=== PATIENT | male | born 1980 | race Caucasian/White ===

== ENCOUNTER 2017-09-07 01:18 | Emergency (ER) | payer OTHER, SELFPAY ==
[2017-09-07 01:19] VITALS: BP 139/88; PULSE 80; RESP 17; TEMP 37; O2SAT 100; BMI 27.0
--- NOTE | 2017-09-07 01:38 | EKG12_ITS ---
Test Reason : CHEST PAIN Blood Pressure : / mmHG Vent. Rate : 079 BPM Atrial Rate : 079 BPM P-R Int : 136 ms QRS Dur : 080 ms QT Int : 384 ms P-R-T Axes : 009 041 031 degrees QTc Int : 440 ms Normal sinus rhythm Normal ECG Confirmed by SÁNCHEZ MCDONNELL MD ([id number]), desk editor SOL BRYAN ([id number] on 09/08/2017 8:34:36 AM Referred By: TL Confirmed By:SÁNCHEZ MCDONNELL MD
--- NOTE | 2017-09-07 01:38 | RAD_ITS ---
STUDY: X-RAY CHEST REASON FOR EXAM: Male, 36 years old. DIZZINESS AND CHEST PAIN SINCE. TECHNIQUE: Single AP portable view of the chest. COMPARISON: None. FINDINGS: The lungs are clear and expanded. There is no demonstrated pleural abnormality. Normal size heart. Normal mediastinum and michael. Normal visualized pulmonary arteries. Normal visualized aortic arch and descending thoracic aorta. Normal visualized thoracic spine. Normal visualized ribs, clavicles, and shoulders. There is no demonstrated abnormality of the visualized soft tissue structures of the upper abdomen. RAD/Chest 1 View (Portable) IMPRESSION: Normal x-ray examination of the chest. Electronically Signed: Darin Frias MD at 2:32 EDT Tel , Service support ,
--- NOTE | 2017-09-07 01:40 | ED.DCSUM_ITS ---
- ER Visit Summary Date of Service: 09/07/17 Chief Complaint: Chest pain History of Present Illness: The patient is a 36 M left-sided chest pain since yesterday around 4 PM after having an anxiety attack. History of PTSD. His pain down left arm and up to the neck. Complains of dyspnea. Complains of exertional dyspnea. No cough. No nausea. No diaphoresis. No history of AR. Stress test in 2009 after anxiety attack. He vapors. Also states he drove to [place] 2 weeks ago. There is no leg swelling or cramping. No history of PE or DVT. Pain is currently a 5. No history of hypertension, diabetes, hypercholesterolemia. No family history of AR at a young age. Physical Examination: General: Alert and oriented ?3, no acute distress HEENT: Normocephalic, atraumatic. Moist mucosa membranes Neck: supple, nontender. Cardiovascular: Regular rate and rhythm, no murmurs Respiratory: Normal breath sounds, symmetric, no distress Abdomen: Soft, nontender, nondistended Extremities: Nontender, no edema, pulses intact ?4 Neuro: no focal neurological deficits. Test Results: EKG: Sinus rate of 79, no ST or T-wave changes. Troponin negative. D-dimer negative. Chest x-ray no acute process. Emergency Department Course and Treatment: Patient EKG normal. Cardiac workup negative. D-dimer due to low risk Wells criteria from recent travel obtain was also negative. Patient persistent symptoms over 24 hours, negative troponin, less likely cardiac in nature. He was given aspirin. Heart scores a 2. Heart pathway guideline discussed with the patient. He understands the risks. He will follow-up as an outpatient for further testing. He will return if any worsening symptoms. All questions were answered. Treatment Plan: [] Disposition: Discharge Impression: Atypical chest pain This note was generated with [employer] dictation software. It may contain incorrect words, spelling, and punctuation that were not noted in review of the chart prior to signing ED Disposition - Plan for ED Patient: Disposition: Home or Assisted Living Chief Complaint: Chest Pain Diagnosis: Atypical chest pain Instructions: ED Chest Pain Atypical Unkn Cause [facility] - 3-5 Days
--- NOTE | 2017-09-07 01:41 | NURSING ---
NO OLD EKG TO OBTAIN
[2017-09-07 01:45] LABS: Absolute Lymphocyte Count 2.75 X10^3/ul (0.83-4.51); Absolute Neutrophil Count 7.1 X10^3/uL (2.0-7.7); Basophil# 0.08 X10^3/uL; Basophil% 0.7 % (0-1); Eosinophil# 0.24 X10^3/uL; Eosinophils% 2.2 % (0-5); Hematocrit 42.9 % (40-54); Hemoglobin 14.3 g/dl (13.0-16.5); Lymphocyte # 2.75 X10^3/ul (4.0); Lymphocyte % 25.1 % (19-41); Mean Corp Hgb Conc 33.3 g/gl (32-36); Mean Corpuscular Hgb 28.5 pg (27.0-32.0); Mean Corpuscular Volume 85.6 fL (80-94); Monocyte# 0.73 X10^3/uL; Monocyte% 6.7 % (0-10); Neutrophil # 7.13 X10^3/uL (2.7-7.7); Neutrophil % 65.2 % (47-70); Platelet Count 278 K/mm3 (150-450); RBC Distribution Width CV 13.5 % (11.6-14.6); RBC Distribution Width SD 42.3 fl (35.1-43.9); Red Blood Count 5.01 M/mm3 (4.6-6.2); White Blood Count 10.9 K/mm3 (4.4-11.0)
[2017-09-07 01:46] LABS: POSITIVE COUNT NO; POSITIVE DIFFERENTIAL NO; POSITIVE MORPHOLOGY NO
[2017-09-07 02:00] LABS: D-Dimer Quantitative (DVT/PE) < 0.27 FEU/ug/m (0.27-0.49)
[2017-09-07 02:02] LABS: Anion Gap 7 (5-15); BUN 14 mg/dL (7-18); BUN/Creat Ratio 14.2 RATIO (10-20); Calcium,Total 8.7 mg/dL (8.5-10.1); Chloride 106 mmol/L (98-107); Creatinine, Serum 0.99 mg/dL (0.70-1.30); EST Glomerular Filtration Rate 90 mL/min (>60); Est Glom Filt Rate - Afr Amer 109 mL/min (>60); Estimated Creatinine Clearance 101.17 ml/min; Glucose 94 mg/dL (74-106); Potassium 3.6 mmol/L (3.5-5.1); Sodium Level 140 mmol/L (136-145)
[2017-09-07] MEDS: Aspirin 81 MG TAB.CHEW 324 MG PO (02:12)
[2017-09-07 03:20] VITALS: BP 118/79; PULSE 74; RESP 22; O2SAT 98
[2017-09-07 03:59] VITALS: BP 114/78; PULSE 63; RESP 18; O2SAT 100
== END 2017-09-07 03:59 | disposition home or self-care (01) ==
PROVIDERS: Emergency Provider Emergency Medicine
DX: R07.89 Other chest pain (principal); R06.09 Other forms of dyspnea; F41.9 Anxiety disorder, unspecified; F43.10 Post-traumatic stress disorder, unspecified
CPT/HCPCS: 71045; 80048; 84484; 85025; 85379; 93005; 99285

== ENCOUNTER 2017-09-17 14:46 | Emergency (ER) | payer OTHER, SELFPAY ==
[2017-09-17 14:46] VITALS: BP 104/71; PULSE 95; RESP 18; TEMP 37; O2SAT 99; BMI 26.6
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
[2017-09-17] MEDS: Ketorolac 30 MG/ML Syringe IM (15:10)
[2017-09-17] MEDS: Orphenadrine 60 MG/2 ML Ampul IM (15:10)
[2017-09-17] MEDS: HYDROcodone Bitartrate/Apap 5/325 Tablet PO (15:57)
== END 2017-09-17 16:43 | disposition home or self-care (01) ==
PROVIDERS: Emergency Provider Emergency Medicine
DX: S39.012A Strain of muscle, fascia and tendon of lower back, initial encounter (principal); X50.1XXA Overexertion from prolonged static or awkward postures, initial encounter; Y93.89 Activity, other specified; Y92.814 Boat as the place of occurrence of the external cause; Y99.8 Other external cause status
CPT/HCPCS: 96372; 99282

== ENCOUNTER → 2018-11-19 | Outpatient (CLI) | payer OTHER, SELFPAY ==
[2018-11-19 13:44] LABS: Bacteria 0 SEEN /hpf (None Seen); Mucous, Urine 0 SEEN /hpf (<or=2+); Red Blood Cells-Urine 0 SEEN /hpf (0-5); Squamous Epithelial Cells - UA 0 SEEN /hpf (0-5); White Blood Cells 0 SEEN /hpf (0-5)
[2018-11-19 15:24] LABS: Absolute Lymphocyte Count 1.71 X10^3/uL (0.83-4.51); Absolute Neutrophil Count 5.7 X10^3/uL (2.0-7.7); Basophil# 0.08 X10^3/uL; Color, Urine Yellow (Yellow); Eosinophil# 0.17 X10^3/uL; Eosinophils% 2.1 % (0-5); Glucose, Dipstick Normal (Normal); Hematocrit 42.9 % (40-54); Hemoglobin 13.6 g/dL (13.0-16.5); Ketone-Dipstick Negative (Negative); Leukocyte Esterase-Dipstick Negative /ul (Negative); Lymphocyte # 1.71 X10^3/ul (4.0); Lymphocyte % 20.7 % (19-41); Mean Corp Hgb Conc 31.7 g/dL (32-36); Mean Corpuscular Hgb 28.2 pg (27.0-32.0); Mean Platelet Vol. 11.7 fl (6.2-12.0); Monocyte# 0.62 X10^3/uL; Monocyte% 7.5 % (0-10); NRBC Flagged by Analyzer 0 % (0-5); Neutrophil # 5.66 X10^3/uL (2.7-7.7); Neutrophil % 68.3 % (47-70); Nitrite-Dipstick Negative (Negative); Occult Blood-Urine Negative /ul (Negative); Platelet Count 271 K/mm3 (150-450); Protein-Dipstick Negative (Negative); RBC Distribution Width CV 13.1 % (11.6-14.6); RBC Distribution Width SD 42.5 fl (35.1-43.9); Red Blood Count 4.82 M/mm3 (4.6-6.2); Specific Gravity, Urine 1.015 (1.002-1.030); Urine Bilirubin Dipstick Negative (Negative); Urine Clarity Clear (Clear); Urine Urobilinogen Normal (Normal); White Blood Count 8.3 K/mm3 (4.4-11.0)
[2018-11-19 15:34] LABS: Hemoglobin A1c 5.1 % (4.2-6.3)
[2018-11-19 15:47] LABS: ALB/GLOB Ratio 0.9 RATIO (0.9-2.4); AST(SGOT) 17 U/L (15-37); Alanine Aminotransfer ALT/SGPT 26 U/L (16-61); Albumin, Serum 3.4 g/dL (3.2-5.0); Alkaline Phosphatase 71 U/L (45-117); Anion Gap 9 (5-15); BUN 13 mg/dL (7-18); Calcium,Total 8.4 mg/dL (8.5-10.1); Chloride 109 mmol/L (98-107); Cholesterol 232 mg/dL (200); Creatinine, Serum 1.08 mg/dL (0.70-1.30); EST Glomerular Filtration Rate 80 mL/min (>60); Est Glom Filt Rate - Afr Amer 97 mL/min (>60); Globulin 3.6 g/dL (2.2-4.2); Glucose 67 mg/dL (74-106); High Density Lipoprotein 49 mg/dL; Potassium 3.9 mmol/L (3.5-5.1); Sodium Level 144 mmol/L (136-145); Triglycerides 83 mg/dL; Very Low Density Lipoprotein 17 mg/dL (5-40)
== END | disposition home or self-care (01) ==
LOC: MFPLAB 13:42
PROVIDERS: Family Provider Family Medicine; PCP Family Medicine; Referring Provider Family Medicine; Visit Provider Family Medicine
DX: R63.1 Polydipsia (principal); F41.9 Anxiety disorder, unspecified; N52.9 Male erectile dysfunction, unspecified
CPT/HCPCS: 36415; 80053; 80061; 81001; 83036; 84443; 85025

== ENCOUNTER → 2019-02-26 14:35 | Outpatient (CLI) | payer OTHER, SELFPAY ==
--- NOTE | 2019-02-26 14:40 | RAD_ITS ---
STUDY: X-RAY - ACUTE ABDOMINAL SERIES REASON FOR EXAM: Male, 38 years old. Abdominal pain. TECHNIQUE: Single view of the chest. Supine, upright view(s) of the abdomen were obtained. COMPARISON: Chest x-ray September 07, 2017. CT abdomen and pelvis December 10, 2014. FINDINGS: The lungs are clear and expanded. Normal size heart. Normal mediastinum and michael. Normal visualized pulmonary arteries. Normal visualized aortic arch and descending thoracic aorta. There is a non-specific bowel gas pattern. The soft tissue structures of the abdomen and pelvis are unremarkable. Stable 1 cm sclerotic density left ischial tuberosity probably representing an incidental bone island. RAD/Acute Abdomen Inc Chest IMPRESSION: No acute cardiopulmonary disease. Nonspecific bowel gas pattern without evidence of obstruction. Electronically Signed: Stephen Nayak MD at 5:37 EST , Service support ,
== END ==
PROVIDERS: Family Provider Family Medicine; PCP Family Medicine; Referring Provider Family Medicine; Visit Provider Family Medicine
DX: R10.9 Unspecified abdominal pain (principal)
CPT/HCPCS: 74022

== ENCOUNTER → 2019-10-30 08:24 | Outpatient (CLI) | payer OTHER, SELFPAY ==
--- NOTE | 2019-10-30 08:53 | RAD_ITS ---
STUDY: X-RAY CHEST REASON FOR EXAM: Male, 39 years old. dysphagia TECHNIQUE: PA and lateral COMPARISON: 09/07/2017 FINDINGS: The lungs are clear and expanded. There is no demonstrated pleural abnormality. Normal size heart. Normal mediastinum and michael. Normal visualized pulmonary arteries. Normal visualized aortic arch and descending thoracic aorta. Dorsal spine demonstrates mild spondylosis. Normal visualized ribs, clavicles, and shoulders. There is no demonstrated abnormality of the visualized soft tissue structures of the upper abdomen. No significant change since prior exam RAD/Chest PA and Lateral IMPRESSION: No acute cardiopulmonary pathology Electronically Signed: Everette Holley MD at 22:50 EDT , Service support ,
[2019-10-30 10:15] LABS: Absolute Lymphocyte Count 1.74 X10^3/uL (0.83-4.51); Absolute Neutrophil Count 6.1 X10^3/uL (2.0-7.7); Basophil# 0.08 X10^3/uL; Basophil% 0.9 % (0-1); Eosinophil# 0.18 X10^3/uL; Hematocrit 43.6 % (40-54); Hemoglobin 13.7 g/dL (13.0-16.5); Lymphocyte # 1.74 X10^3/ul (4.0); Lymphocyte % 19.7 % (19-41); Mean Corp Hgb Conc 31.4 g/dL (32-36); Mean Corpuscular Volume 89.2 fL (80-94); Mean Platelet Vol. 11.5 fl (6.2-12.0); Monocyte# 0.76 X10^3/uL; Monocyte% 8.6 % (0-10); NRBC Flagged by Analyzer 0 % (0-5); Neutrophil # 6.05 X10^3/uL (2.7-7.7); Neutrophil % 68.6 % (47-70); Platelet Count 287 K/mm3 (150-450); RBC Distribution Width CV 13.3 % (11.6-14.6); RBC Distribution Width SD 43.2 fl (35.1-43.9); Red Blood Count 4.89 M/mm3 (4.6-6.2); White Blood Count 8.8 K/mm3 (4.4-11.0)
[2019-10-30 10:42] LABS: ALB/GLOB Ratio 0.9 RATIO (0.9-2.4); AST(SGOT) 17 U/L (15-37); Alanine Aminotransfer ALT/SGPT 30 U/L (16-61); Albumin, Serum 3.5 g/dL (3.2-5.0); Alkaline Phosphatase 72 U/L (45-117); Anion Gap 3 (5-15); BUN 15 mg/dL (7-18); BUN/Creat Ratio 14.7 RATIO (10-20); Calcium,Total 8.6 mg/dL (8.5-10.1); Chloride 106 mmol/L (98-107); Creatinine, Serum 1.02 mg/dL (0.70-1.30); EST Glomerular Filtration Rate 86 mL/min (>60); Est Glom Filt Rate - Afr Amer 103 mL/min (>60); Globulin 3.7 g/dL (2.2-4.2); Glucose 86 mg/dL (74-106); Potassium 4.1 mmol/L (3.5-5.1); Protein, Total 7.2 g/dL (6.4-8.2); Sodium Level 140 mmol/L (136-145)
[2019-10-31 16:08] LABS: Endomysial Antibody IgA Negative (Negative)
[2019-10-31 20:44] LABS: Immunoglobulin A 146 mg/dL (90-386); t-Transglutaminase IgA <2 U/mL (0-3)
[2019-10-31 20:50] LABS: ANTINUCLEAR ANTIBODIES DIRECT Positive (Negative)
[2019-11-04 16:08] LABS: Anti-Centromere B Ab <0.2 AI (0.0-0.9); Anti-Chromatin <0.2 AI (0.0-0.9); Anti-Jo <0.2 AI (0.0-0.9); Anti-Scleroderma-70 AB <0.2 AI (0.0-0.9); RNP Ab 2.7 AI (0.0-0.9); SJOGREN'S Anti-SS-A test < 0.2 AI (0.0-0.9); SJOGREN'S Anti-SS-B test < 0.2 AI (0.0-0.9); Smith Ab <0.2 AI (0.0-0.9)
[2019-11-04 21:27] LABS: Anti-dsDNA Ab 7 IU/mL (0-9)
== END ==
LOC: MTLAB 08:26
PROVIDERS: PCP Family Medicine; Referring Provider Family Medicine; Visit Provider Family Medicine
DX: R19.7 Diarrhea, unspecified (principal); R53.81 Other malaise; R13.10 Dysphagia, unspecified
CPT/HCPCS: 36415; 71046; 80053; 82784; 83516; 85025; 86038; 86225; 86235; 86255

== ENCOUNTER → 2020-06-24 09:49 | Outpatient (CLI) | payer OTHER, SELFPAY ==
[2020-06-24 12:50] LABS: Absolute Lymphocyte Count 1.58 X10^3/uL (0.83-4.51); Basophil# 0.07 X10^3/uL; Basophil% 0.7 % (0-1); Eosinophil# 0.15 X10^3/uL; Eosinophils% 1.6 % (0-5); Hematocrit 45.1 % (40-54); Hemoglobin 14.1 g/dL (13.0-16.5); Lymphocyte # 1.58 X10^3/ul (0.83-4.51); Lymphocyte % 16.6 % (19-41); Mean Corp Hgb Conc 31.3 g/dL (32-36); Mean Corpuscular Hgb 27.4 pg (27.0-32.0); Mean Corpuscular Volume 87.6 fL (80-94); Mean Platelet Vol. 11.6 fl (6.2-12.0); Monocyte# 0.73 X10^3/uL; Monocyte% 7.7 % (0-10); NRBC Flagged by Analyzer 0 % (0-5); Neutrophil # 6.95 X10^3/uL (2.7-7.7); Neutrophil % 73.1 % (47-70); Platelet Count 299 K/mm3 (150-450); RBC Distribution Width CV 13.3 % (11.6-14.6); RBC Distribution Width SD 42.9 fl (35.1-43.9); Red Blood Count 5.15 M/mm3 (4.6-6.2); White Blood Count 9.5 K/mm3 (4.4-11.0)
[2020-06-24 13:08] LABS: AST(SGOT) 21 U/L (15-37); Alanine Aminotransfer ALT/SGPT 29 U/L (16-61); Albumin, Serum 3.8 g/dL (3.2-5.0); Alkaline Phosphatase 78 U/L (45-117); Anion Gap 3 (5-15); BUN 18 mg/dL (7-18); BUN/Creat Ratio 19.2 RATIO (10-20); Calcium,Total 9.1 mg/dL (8.5-10.1); Chloride 108 mmol/L (98-107); Cholesterol 241 mg/dL (200); Creatinine, Serum 0.94 mg/dL (0.70-1.30); EST Glomerular Filtration Rate 94 mL/min (>60); Est Glom Filt Rate - Afr Amer 113 mL/min (>60); Globulin 3.8 g/dL (2.2-4.2); Glucose 93 mg/dL (74-106); High Density Lipoprotein 45 mg/dL; Protein, Total 7.6 g/dL (6.4-8.2); Sodium Level 138 mmol/L (136-145); Thyroid Stim Hormone (TSH) 1.09 uIU/mL (0.358-3.74); Triglycerides 62 mg/dL; Very Low Density Lipoprotein 12 mg/dL (5-40)
== END ==
PROVIDERS: PCP Family Medicine; Referring Provider Family Medicine; Visit Provider Family Medicine
DX: E78.5 Hyperlipidemia, unspecified (principal); F41.9 Anxiety disorder, unspecified
CPT/HCPCS: 36415; 80053; 80061; 84443; 85025

== ENCOUNTER → 2020-11-11 08:14 | Outpatient (CLI) | payer OTHER, SELFPAY ==
[2020-11-11 10:45] LABS: ALB/GLOB Ratio 1.1 RATIO (0.9-2.4); AST(SGOT) 38 U/L (15-37); Alanine Aminotransfer ALT/SGPT 50 U/L (16-61); Albumin, Serum 4.1 g/dL (3.2-5.0); Alkaline Phosphatase 81 U/L (45-117); Anion Gap 5 (5-15); BUN 17 mg/dL (7-18); BUN/Creat Ratio 15.9 RATIO (10-20); Calcium,Total 8.6 mg/dL (8.5-10.1); Chloride 105 mmol/L (98-107); Cholesterol 147 mg/dL (200); Creatinine, Serum 1.07 mg/dL (0.70-1.30); EST Glomerular Filtration Rate 81 mL/min (>60); Est Glom Filt Rate - Afr Amer 97 mL/min (>60); Globulin 3.7 g/dL (2.2-4.2); Glucose 90 mg/dL (74-106); High Density Lipoprotein 46 mg/dL; Protein, Total 7.8 g/dL (6.4-8.2); Sodium Level 137 mmol/L (136-145); Triglycerides 46 mg/dL; Very Low Density Lipoprotein 9 mg/dL (5-40)
[2020-11-12 20:08] LABS: Anti-Centromere B Ab <0.2 AI (0.0-0.9); Anti-Chromatin <0.2 AI (0.0-0.9); Anti-Jo <0.2 AI (0.0-0.9); Anti-Scleroderma-70 AB <0.2 AI (0.0-0.9); RNP Ab 3.3 AI (0.0-0.9); SJOGREN'S Anti-SS-A test < 0.2 AI (0.0-0.9); SJOGREN'S Anti-SS-B test < 0.2 AI (0.0-0.9); Smith Ab <0.2 AI (0.0-0.9)
[2020-11-12 20:51] LABS: Anti-dsDNA Ab 6 IU/mL (0-9)
== END ==
LOC: MFPLAB 08:15
PROVIDERS: PCP Family Medicine; Referring Provider Family Medicine; Visit Provider Family Medicine
DX: E78.5 Hyperlipidemia, unspecified (principal)
CPT/HCPCS: 36415; 80053; 80061; 86225; 86235

== ENCOUNTER 2021-01-29 00:01 | Emergency (ER) | payer OTHER, SELFPAY ==
[2021-01-29] VITALS (22 sets, daily range): BP systolic 103–173; BP diastolic 72–99; PULSE 56–78; RESP 12–22; TEMP 35.7; O2SAT 95–100; BMI 30.1
--- NOTE | 2021-01-29 00:06 | EKG12_ITS ---
Test Reason : OVERDOSE Blood Pressure : / mmHG Vent. Rate : 063 BPM Atrial Rate : 063 BPM P-R Int : 162 ms QRS Dur : 082 ms QT Int : 440 ms P-R-T Axes : 029 018 041 degrees QTc Int : 450 ms Normal sinus rhythm Normal ECG Confirmed by DAYNA ASTUDILLO, SHERWIN ([id number]), commissioning editor ESTELITA TODD ([id number]) on 01/29/2021 2:00:09 P M Referred By: Confirmed By:THONG MCINTOSH MD
[2021-01-29 00:16] LABS: Absolute Lymphocyte Count 2.48 X10^3/uL (0.83-4.51); Absolute Neutrophil Count 7.3 X10^3/uL (2.0-7.7); Basophil# 0.09 X10^3/uL; Basophil% 0.8 % (0-1); Eosinophil# 0.25 X10^3/uL; Eosinophils% 2.2 % (0-5); Hematocrit 42.3 % (40-54); Hemoglobin 13.9 g/dL (13.0-16.5); Lymphocyte # 2.48 X10^3/ul (0.83-4.51); Lymphocyte % 22.1 % (19-41); Mean Corp Hgb Conc 32.9 g/dL (32-36); Mean Corpuscular Hgb 28.4 pg (27.0-32.0); Mean Corpuscular Volume 86.5 fL (80-94); Mean Platelet Vol. 11.4 fl (6.2-12.0); Monocyte# 1.04 X10^3/uL; Monocyte% 9.3 % (0-10); NRBC Flagged by Analyzer 0 % (0-5); Neutrophil % 65.2 % (47-70); Platelet Count 311 K/mm3 (150-450); RBC Distribution Width CV 13.3 % (11.6-14.6); RBC Distribution Width SD 41.9 fl (35.1-43.9); Red Blood Count 4.89 M/mm3 (4.6-6.2); White Blood Count 11.2 K/mm3 (4.4-11.0)
--- NOTE | 2021-01-29 00:19 | EDS_ITS ---
HPI History of Present Illness Chief Complaint: Overdose Informant: spouse/S.O. and EMS Narrative Narrative: 40-year-old male presents to the emergency department via EMS following an intentional drug overdose. Reportedly the patient took unknown amount of propranolol and Escitalopram at unknown time tonight. The patient's pill bottles show that he was given a 90-day prescription and the pills were filled on November 11. The patient is not speaking and will not give us any information. I did speak with the who stated that they got into an argument tonight. She states that occasionally he will get into these moods but she he has never overdosed before. She states that there have been times where his primary care doctor has called the police on him to do a welfare check. She notes that he has been very compliant with taking his medications. This at least is somewhat reassuring knowing that 80 days have passed since he filled the medication making at least 10 pills left in the bottles. [facility] Medical History PTSD (post-traumatic stress disorder) Home Medications diazepam 2 mg PO TID PRN PRN #10 tab 09/17/17 [Rx Last Taken Unknown] hydrocodone-acetaminophen 1 tab PO Q4H PRN PRN 2 Days #10 tab 09/17/17 [Rx Last Taken Unknown] naproxen 500 mg PO BID PRN #20 tab 09/17/17 [Rx Last Taken Unknown] escitalopram oxalate 20 mg PO DAILY 01/29/21 [History Last Taken Unknown] propranolol 80 mg PO DAILY 01/29/21 [History Last Taken Unknown] rosuvastatin 20 mg PO DAILY 01/29/21 [History Last Taken Unknown] Allergy/AdvReac Type Severity Reaction Status Date / Time No Known Allergies Allergy Verified 01/29/21 00:06 Social History (Updated 01/29/21 @ 00:[address] Ino Torres DO) service: Yes Smoking Status: Current every day smoker tobacco type: cigarettes ROS ROS ED Review of Systems ROS Unobtainable: due to mental condition EXAM Physical Exam Const Vital Signs: 01/29/21 00:02 01/29/21 01:10 01/29/21 02:06 Temperature 96.3 F L Temperature Source Temporal Pulse Rate 56 L 63 62 Respiratory Rate 18 22 H 18 Blood Pressure 173/99 H 112/88 H 122/95 H Blood Pressure Mean 123 96 104 Pulse Ox 99 99 99 Oxygen Delivery Method Room Air Room Air 01/29/21 03:15 01/29/21 04:00 01/29/21 05:00 Temperature Temperature Source Pulse Rate 62 57 L 61 Respiratory Rate 14 17 18 Blood Pressure 114/76 103/72 109/79 Blood Pressure Mean 88 82 89 Pulse Ox 99 95 99 Oxygen Delivery Method Room Air Positive well nourished and well developed General Appearance ED: well developed HEENT Reports normocephalic, head/scalp atraumatic, TM's clear and moist mucous membranes Negative for trauma Tympanic Membrane ED: Yes TM's clear Eyes PERRL and EOMs intact bilaterally Neck no lymphadenopathy, supple and no JVD Resp normal respiratory effort and clear to auscultation bilaterally Cardio regular rate, regular rhythm and no murmurs GI normal to inspection, nondistended, normoactive bowel sounds and non-tender Palpation: soft Back/Spine no CVA tenderness and normal ROM Extremity normal to inspection General Extremety ED: Negative for edema General Extremity: Negative for edema Neuro CN's II-XII intact bilaterally Sensorium / Orientation: alert Motor Exam: strength 5/5 throughout Psych Psych Narrative: Patient is not speaking Skin no rashes or lesions noted and no wounds MDM MDM MDM Narrative Medical decision making narrative: Psychiatric screening labs were obtained. This work-up was negative. His Covid is negative. If the patient had 10 remaining pills that would put in ingestion of around 8 mg/kg well above the toxic dose. The patient has not had hypotension or significant bradycardia. The half-life of propranolol is 4 to 6 hours out on therapeutic levels. He has been watched now for 6 hours and has not had any toxic effects. Therefore I think the patient is medically cleared for psychiatric examination. He has yet to speak with any of the staff. At this point care the patient will be turned over to the daytime physician to work with crisis for what I anticipate would be a psychiatric transfer Lab Data Attestation: I reviewed the patient's lab results. Labs: Laboratory Results - last 24 hr 01/29/21 01/29/21 01/29/21 00:05 00:05 00:05 WBC 11.2 H RBC 4.89 Hgb 13.9 Hct 42.3 MCV 86.5 MCH 28.4 MCHC 32.9 RDW Std Deviation 41.9 RDW Coeff of Indira 13.3 Plt Count 311 MPV 11.4 Immature Gran % (Auto) 0.400 Neut % (Auto) 65.2 Lymph % (Auto) 22.1 Clinch % (Auto) 9.3 Eos % (Auto) 2.2 Baso % (Auto) 0.8 Absolute Neuts (auto) 7.3 Absolute Lymphs (auto) 2.48 Nucleated RBC % 0 PT INR APTT Sodium 141 Potassium 3.5 Chloride 108 H Carbon Dioxide 29.0 Anion Gap 4 L BUN 12 Creatinine 1.11 Estim Creat Clear Calc 86.69 Est GFR (MDRD) Af Amer 93 Est GFR (MDRD) Non-Af 77 BUN/Creatinine Ratio 10.8 Glucose 115 H Calcium 8.3 L Total Bilirubin 0.30 Direct Bilirubin 0.10 AST 22 ALT 35 Alkaline Phosphatase 80 Troponin I High Sens 7 Total Protein 7.3 Albumin 3.5 Globulin 3.8 TSH 2.17 Urine Color Urine Clarity Urine pH Ur Specific [place] Urine Protein Urine Glucose (UA) Urine Ketones Urine Occult Blood Urine Nitrite Urine Bilirubin Urine Urobilinogen Ur Leukocyte Esterase Urine RBC Urine WBC Ur Squamous Epith Cells Urine Bacteria Urine Mucus Urine Opiates Screen Urine Methadone Screen Ur Barbiturates Screen Ur Phencyclidine Scrn Ur Amphetamines Screen U Methamphetamin-MDMA U Benzodiazepines Scrn Urine Cocaine Screen U Cannabinoids Screen Ur Drug Screen Comment Ethyl Alcohol < 3.0 01/29/21 01/29/21 01/29/21 00:19 01:05 01:05 WBC RBC Hgb Hct MCV MCH MCHC RDW Std Deviation RDW Coeff of Indira Plt Count MPV Immature Gran % (Auto) Neut % (Auto) Lymph % (Auto) Clinch % (Auto) Eos % (Auto) Baso % (Auto) Absolute Neuts (auto) Absolute Lymphs (auto) Nucleated RBC % PT 12.9 INR 1.0 APTT 33.3 Sodium Potassium Chloride Carbon Dioxide Anion Gap BUN Creatinine Estim Creat Clear Calc Est GFR (MDRD) Af Amer Est GFR (MDRD) Non-Af BUN/Creatinine Ratio Glucose Calcium Total Bilirubin Direct Bilirubin AST ALT Alkaline Phosphatase Troponin I High Sens Total Protein Albumin Globulin TSH Urine Color Yellow Urine Clarity Clear Urine pH 7.0 Ur Specific [place] 1.010 Urine Protein Negative Urine Glucose (UA) Normal Urine Ketones Negative Urine Occult Blood Negative Urine Nitrite Negative Urine Bilirubin Negative Urine Urobilinogen 1 H Ur Leukocyte Esterase Negative Urine RBC 0 SEEN Urine WBC 0 SEEN Ur Squamous Epith Cells 0 SEEN Urine Bacteria 0 SEEN Urine Mucus 0 SEEN Urine Opiates Screen NEGATIVE Urine Methadone Screen NEGATIVE Ur Barbiturates Screen NEGATIVE Ur Phencyclidine Scrn NEGATIVE Ur Amphetamines Screen NEGATIVE U Methamphetamin-MDMA NEGATIVE U Benzodiazepines Scrn POSITIVE H Urine Cocaine Screen NEGATIVE U Cannabinoids Screen NEGATIVE Ur Drug Screen Comment Ethyl Alcohol EKG Initial EKG: Attestation: I personally reviewed and interpreted this EKG as follows: Comments: Normal sinus rhythm with a ventricular rate of 63 bpm Discharge Plan Triage Chief Complaint: Overdose ED Provider: Ino Torres Dx/Rx/DC Orders Clinical Impression: Drug overdose, intentional, Depression, Suicide attempt Prescriptions: No Action hydrocodone-acetaminophen 1 TABLET tablet 1 tab PO Q4H PRN PRN (Reason: Pain) 2 Days Qty: 10 RF: 0 diazepam 2 MG tablet 2 mg PO TID PRN PRN (Reason: Vertigo) Qty: 10 RF: 0 naproxen 500 MG tablet 500 mg PO BID PRN Qty: 20 RF: 0 propranolol 80 mg capsule,extended release 24 hr 80 mg PO DAILY RF: 0 escitalopram oxalate 20 mg tablet 20 mg PO DAILY RF: 0 rosuvastatin 20 mg tablet 20 mg PO DAILY RF: 0 Primary Care Provider: Matt Monet Referrals: Matt Monet MD [Primary Care Provider] - Disposition Disposition: Psychiatric Hospital or Unit
[2021-01-29 00:31] LABS: Alcohol, Blood (Medical)-Serum < 3.0 mg/dL
[2021-01-29 00:34] LABS: Prothrombin Time (Protime)PT. 12.9 SECONDS (11.7-14.9)
[2021-01-29 00:36] LABS: Partial Thromboplast Time 33.3 Seconds (24.1-36.2)
[2021-01-29 00:44] LABS: AST(SGOT) 22 U/L (15-37); Alanine Aminotransfer ALT/SGPT 35 U/L (16-61); Albumin, Serum 3.5 g/dL (3.2-5.0); Alkaline Phosphatase 80 U/L (45-117); Anion Gap 4 (5-15); BUN 12 mg/dL (7-18); BUN/Creat Ratio 10.8 RATIO (10-20); Calcium,Total 8.3 mg/dL (8.5-10.1); Chloride 108 mmol/L (98-107); Creatinine, Serum 1.11 mg/dL (0.70-1.30); EST Glomerular Filtration Rate 77 mL/min (>60); Est Glom Filt Rate - Afr Amer 93 mL/min (>60); Estimated Creatinine Clearance 86.69 ml/min; Globulin 3.8 g/dL (2.2-4.2); Glucose 115 mg/dL (74-106); Potassium 3.5 mmol/L (3.5-5.1); Protein, Total 7.3 g/dL (6.4-8.2); Sodium Level 141 mmol/L (136-145); Thyroid Stim Hormone (TSH) 2.17 uIU/mL (0.358-3.74); Troponin-I HS 7 pg/mL (3.0-78.0)
[2021-01-29 01:16] LABS: Bacteria 0 SEEN /hpf (None Seen); Mucous, Urine 0 SEEN /hpf (<or=2+); Red Blood Cells-Urine 0 SEEN /hpf (0-5); Squamous Epithelial Cells - UA 0 SEEN /hpf (0-5); White Blood Cells 0 SEEN /hpf (0-5)
[2021-01-29 01:21] LABS: Color, Urine Yellow (Yellow); Glucose, Dipstick Normal (Normal); Ketone-Dipstick Negative (Negative); Leukocyte Esterase-Dipstick Negative /ul (Negative); Nitrite-Dipstick Negative (Negative); Occult Blood-Urine Negative /ul (Negative); Protein-Dipstick Negative (Negative); Urine Bilirubin Dipstick Negative (Negative); Urine Clarity Clear (Clear); Urine Urobilinogen 1 mg/dl (Normal)
[2021-01-29 02:09] LABS: Amphetamine Urine VISTA NEGATIVE (<1000 ng/mL); Barbiturate Urine VISTA NEGATIVE (< 200 ng/mL); Benzodiazepine Urine VISTA POSITIVE (< 200 ng/mL); Cocaine Urine VISTA NEGATIVE (< 300 ng/mL); Ecstacy Urine VISTA NEGATIVE (< 500 ng/mL); Methadone Urine VISTA NEGATIVE (< 300 ng/mL); PCP Urine VISTA NEGATIVE (< 25 ng/mL); THC Urine VISTA NEGATIVE (< 50 ng/mL); Vista UDS pH Range 7
--- NOTE | 2021-01-29 07:49 | ED.RN ---
CRISIS AWARE OF PT. [facility] WILL BE CALLING BACK
--- NOTE | 2021-01-29 08:24 | ED.RN ---
PER CRUZ WITH CRISIS; THEY WERE NOT AWARE OF PT TO HER KNOWLEDGE. SHE IS AWARE THAT PT WILL NEED A FACE TO FACE INTERVIEW. THEY ONLY HAVE ONE STAFF ON DUTY RIGHT NOW AND SHE HAS MANDATORY STATE TRAINING FROM 11-22 SO IT WILL BE AFTER THEN BEFORE SOMEONE WILL BE IN TO SEE PT. SHE WILL CALL US BEFORE THEN IF THERE IS AN UPDATE
--- NOTE | 2021-01-29 08:27 | ED.RN ---
PT MEDICALLY CLEARED PER . PT REMOVED FROM ROLLED GOLD PLATER.
--- NOTE | 2021-01-29 09:17 | ED.RN ---
PER CRUZ WITH CRISIS; WAQAS IS ON HER WAY IN TO EVALUATE PT
--- NOTE | 2021-01-29 10:21 | CM.ED ---
Crisis in with patient. Neo Cantu, PIN FEATHER MACHINE OPERATOR, HEEL SEAT POUNDER
--- NOTE | 2021-01-29 10:23 | ED.RN ---
WAQAS WITH CRISIS WAS HERE. SHE IS GOING TO MAKE REFERRALS CLOSE TO HOME SHE CAN FOR THE PT. SHE IS GOING TO START WITH [facility]. SHE WILL KEEPS US UPDATED
--- NOTE | 2021-01-29 10:51 | CM.ED ---
Addendum entered by Mela Cantu 01/29/21 10:55: [facility]. Original Note: Call from Aline with Crisis. Aline to work on placement. Neo Cantu, GLUE MILL OPERATOR, CONTINUOUS IMPROVEMENT COACH
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
--- NOTE | 2021-01-29 11:42 | CM.ED ---
Assisting Crisis with placement to [facility]. Left message on transfer line. Awaiting call back at this time. Chart faxed to ME at this time. Neo Cantu, TECHNICAL SERVICES CONSULTANT, ERGONOMIC SPECIALIST
--- NOTE | 2021-01-29 12:50 | CM.ED ---
SOCIAL WORK Spoke with [facility] no psych beds available. Call to Crisis to shruti. Neo Cantu, TECHNICAL SALES MANAGER, SHUTTLE VAN DRIVER
--- NOTE | 2021-01-29 13:47 | CM.ED ---
Updated by Aline with Crisis, referral being faxed to [facility]. Pending acceptance at this time. Neo Cantu, PRACTICE SUPPORT SPECIALIST, SQL ARCHITECT
--- NOTE | 2021-01-29 15:17 | CM.ED ---
[facility] requesting documentation that [place] not have beds for [place]. [facility]. Still pending acceptance at this time. Neo Cantu, NEEDLE LOOM WEAVER, WILL CALL ORDER CLERK
--- NOTE | 2021-01-29 17:37 | CM.ED ---
Addendum entered by Mela Cantu 01/29/21 18:29: [facility] unable to accept patient. Referral faxed to [facility]. landing worker, Phuong porter. Original Note: Spoke with Crisis and intake at [facility]. Still pending placement at [facility]. Awaiting acceptance at this time. Neo Cantu, MOUNTER SAXOPHONES, ARBOREAL SCIENTIST
--- NOTE | 2021-01-29 20:11 | CM.ED ---
Call from Yesi, patient has been accepted to [facility] by Dr. Alonzo. Nurse to call report. Call to Crisis to update. Call to [facility], ETA 5-6 hours. Plan: [facility]. Neo Cantu, ROAD INSPECTOR, SHIP SCRAPER
== END 2021-01-30 00:02 ==
PROVIDERS: Emergency Provider Emergency Medicine; PCP Family Medicine
DX: T44.7X2A Poisoning by beta-adrenoreceptor antagonists, intentional self-harm, initial encounter (principal); T43.222A Poisoning by selective serotonin reuptake inhibitors, intentional self-harm, initial encounter; F32.A Depression, unspecified; F17.210 Nicotine dependence, cigarettes, uncomplicated; Z79.899 Other long term (current) drug therapy
CPT/HCPCS: 80048; 80076; 80307; 81001; 82077; 84443; 84484; 85025; 85610; 85730; 87426; 93005; 99285; J7030; A4216

== ENCOUNTER → 2024-03-28 | Outpatient (CLI) | payer OTHER, SELFPAY ==
--- NOTE | 2024-03-28 09:32 | CT_ITS ---
STUDY: CT ABDOMEN AND PELVIS WITH CONTRAST REASON FOR EXAM: Male, 43 years old. CHRONIC ABD PAIN RADIATION DOSAGE (If Supplied By Facility): CTDIvol = ( 16.13 ) mGy, DLP = ( 1364.53 ) mGycm TECHNIQUE: Transaxial images were obtained from the dome of the diaphragm to the symphysis pubis with oral contrast. Oral and amp; IV Readi-CAT and amp; 100mL Isovue-300 was administered. Sagittal and coronal images were reconstructed. Individualized dose optimization techniques were used for this CT. COMPARISON: Comparison is made with prior study of December 10, 2014. FINDINGS: The visualized lung bases are unremarkable. The visualized portions of the heart are within normal limits. There is decreased attenuation of the liver consistent with steatosis. Normal gallbladder and extrahepatic biliary system. Normal spleen. Normal pancreas. Normal bilateral adrenal glands. Normal right kidney. Normal left kidney. Normal visualized stomach. Normal small intestine. Normal colon. The appendix is visualized and appears normal. Normal abdominal aorta. Normal inferior vena cava. Normal retroperitoneum. Normal urinary bladder. Normal abdominal wall. Normal osseous structures. CT/Abdomen/Pelvis WITH Contrast IMPRESSION: Fatty infiltration of the liver. Electronically Signed: Jovani Westfall MD at 11:47 EST ,
== END | disposition home or self-care (01) ==
LOC: CT 09:31
DX: R10.9 Unspecified abdominal pain (principal)
CPT/HCPCS: 74177; Q9967

== ENCOUNTER → 2024-04-10 | Outpatient (CLI) | payer OTHER, SELFPAY ==
[2024-04-10 16:50] LABS: Absolute Lymphocyte Count 1.55 X10^3/uL (0.83-4.51); Absolute Neutrophil Count 6.1 X10^3/uL (2.0-7.7); Basophil# 0.07 X10^3/uL; Basophil% 0.8 % (0-1); Eosinophil# 0.09 X10^3/uL; Eosinophils% 1.1 % (0-5); Hematocrit 41.7 % (40-54); Hemoglobin 13.5 g/dL (13.0-16.5); Lymphocyte # 1.55 X10^3/ul (0.83-4.51); Lymphocyte % 18.4 % (19-41); Mean Corp Hgb Conc 32.4 g/dL (32-36); Mean Corpuscular Hgb 27.5 pg (27.0-32.0); Mean Corpuscular Volume 84.9 fL (80-94); Mean Platelet Vol. 10.8 fl (6.2-12.0); Monocyte# 0.54 X10^3/uL; Monocyte% 6.4 % (0-10); NRBC Flagged by Analyzer 0 % (0-5); Neutrophil # 6.14 X10^3/uL (2.7-7.7); Neutrophil % 73.1 % (47-70); Platelet Count 294 K/mm3 (150-450); RBC Distribution Width SD 39.8 fl (35.1-43.9); Red Blood Count 4.91 M/mm3 (4.6-6.2); White Blood Count 8.4 K/mm3 (4.4-11.0)
[2024-04-10 17:16] LABS: ALB/GLOB Ratio 1.1 RATIO (0.9-2.4); AST(SGOT) 16 U/L (15-37); Alanine Aminotransfer ALT/SGPT 32 U/L (16-61); Albumin, Serum 3.8 g/dL (3.2-5.0); Alkaline Phosphatase 67 U/L (45-117); Anion Gap 6 (5-15); BUN 12 mg/dL (7-18); BUN/Creat Ratio 10.9 RATIO (10-20); Chloride 107 mmol/L (98-107); EST Glomerular Filtration Rate 77 mL/min (>60); Est Glom Filt Rate - Afr Amer 93 mL/min (>60); Globulin 3.6 g/dL (2.2-4.2); Glucose 94 mg/dL (74-106); Potassium 3.9 mmol/L (3.5-5.1); Protein, Total 7.4 g/dL (6.4-8.2); Sodium Level 142 mmol/L (136-145)
[2024-04-10 17:52] LABS: Hepatitis B Surface Antibody Reactive; Hepatitis B Surface Antigen Non-Reactive (Nonreactive); Hepatitis C Antibody Non-Reactive (Nonreactive)
[2024-04-12 05:06] LABS: Hepatitis A AB, Total Positive (Negative); Hepatitis B Core Ab Total Negative (Negative)
== END | disposition home or self-care (01) ==
PROVIDERS: Referring Provider Nurse Practitioner Acute Care; Visit Provider Nurse Practitioner Acute Care
DX: K21.9 Gastro-esophageal reflux disease without esophagitis (principal); R10.9 Unspecified abdominal pain
CPT/HCPCS: 36415; 80053; 85025; 86704; 86706; 86708; 86803; 87340

== ENCOUNTER → 2024-04-16 | Outpatient (CLI) | payer OTHER, SELFPAY ==
--- NOTE | 2024-04-16 09:15 | US_ITS ---
EXAM: US Abdomen Limited, Right Upper Quadrant CLINICAL INDICATION: TECHNIQUE: Real-time ultrasound of the right upper quadrant with image documentation. COMPARISON: No relevant prior studies available. FINDINGS: LIVER: Hepatopetal blood flow in the main portal vein. Liver measures up to 17.7 cm. Fatty infiltration of the liver. No intrahepatic bile duct dilation. GALLBLADDER: Gallbladder polyps, largest measuring up to 0.5 cm. No gallstones. COMMON BILE DUCT: Unremarkable as visualized. No stones. No dilation. Common bile duct measures 0.45 cm in diameter. PANCREAS: Unremarkable as visualized. RIGHT KIDNEY: Unremarkable. No stones. No hydronephrosis. The right kidney measures 11.2 x 5.4 x 6.2 cm. US/Abdomen Limited IMPRESSION: 1. Fatty infiltration of the liver. 2. Gallbladder polyps. Reading [facility]
== END | disposition home or self-care (01) ==
LOC: US 09:14
PROVIDERS: Referring Provider Nurse Practitioner Acute Care; Visit Provider Nurse Practitioner Acute Care
DX: K21.9 Gastro-esophageal reflux disease without esophagitis (principal); R10.9 Unspecified abdominal pain; K76.0 Fatty (change of) liver, not elsewhere classified
CPT/HCPCS: 76705

== ENCOUNTER 2024-06-13 09:34 | Day surgery (SDC) | payer OTHER, SELFPAY ==
[2024-06-13] VITALS (7 sets, daily range): BP systolic 101–132; BP diastolic 63–119; PULSE 55–63; RESP 14–18; TEMP 36.1–36.3; O2SAT 97–100; BMI 30.2
--- NOTE | 2024-06-13 11:06 | PCM.HP.STD ---
HPI - General General Date of Admission: 06/13/24 Date of Service: 06/13/24 Chief Complaint: Abdominal pain and GERD HPI Narrative ARMINDA GERMAN, is a 43 M who presentsChief Complaint: abdominal pain Details: ARMINDA GERMAN is a 43 M who presents to the office today for CT A&P with IC contrast 03/28/2024 liver steatosis, GB unremarkable - c/o bloating - c/o gas - generalized abdominal discomfort - feels like muscle pain worse with eating - nothing makes the pain better - does not prevent him from doing things - pain has been an issue for the past year - RUQ pain, intermittent - occasional right flank pain - alternating constipation or diarrhea - diarrhea once every couple of weeks - constipation - straining - can go 3-4 days without a BM - usually has a BM every day that are formed - rare BRBPR with a BM - denies any rectal pain - denies any weight loss - he feels burning, globus sensation, worse after eating - reports he has HB all the time for a long time takes OTC antacid in addition to OTC Omeprazole - he started pantoprazole 40mg daily on 02/29/2024 - cannot miss a dose - denies any h/o EGD - denies any N/V - denies any dysphagia CAFFEINE: 1L of pop a day, no longer drinking Monsters EtOH: denies SMOKING: history NSAIDS: denies Marijuana: on occasion B: skips L: skips D: pasta and pizza most of the time - I don't eat vegetables - water intake is limited - denies any family h/o IBD or celiac disease [facility] Medical History Anxiety Marijuana use Arthritis History of kidney stones High cholesterol Fatty liver Injury of head and neck Gastric reflux Former smoker Chews tobacco Cardiology follow-up encounter PTSD (post-traumatic stress disorder) Home Medications ?Medication ?Instructions ?Recorded ?Last Taken ?Type fluticasone propionate 50 1 spray intranasal QDAY 04/10/24 06/12/24 History mcg/actuation nasal spray,suspension (Flonase Allergy Relief) omeprazole 20 mg capsule,delayed 20 mg PO QDAY 04/10/24 06/12/24 History release Allergy/AdvReac Type Severity Reaction Status Date / Time No Known Allergies Allergy Verified 06/13/24 10:14 Surgical History History of tonsillectomy Social History Smoking Status: Former smoker alcohol intake: former substance use type: does not use caffeine: Yes ROS Constitutional Constitutional: Denies fatigue, fever(s), poor appetite, weight gain or weight loss Gastrointestinal Gastrointestinal: Denies belching, bloating, change in bowel habits, change in stool character, chewing difficulty, coffee ground emesis, constipation, cramping, diarrhea, dyspepsia, dysphagia, early satiety, excessive flatus, fecal incontinence, heartburn, hematemesis, hematochezia, hemorrhoids, loose stools, melena, nausea, odynophagia, rectal bleeding, tenesmus, vomiting or weight changes Vital Signs Vital Signs Vital Signs: 06/13/24 10:15 06/13/24 10:15 Temperature 97.4 F L Temperature Source Temporal Pulse Rate 63 Respiratory Rate 16 Respiratory Pattern Normal Blood Pressure 120/81 H Blood Pressure Mean 94 Blood Pressure Source Monitor Blood Pressure Position Sitting Blood Pressure Location Left Arm Pulse Ox 100 Oxygen Delivery Method Room Air Weight Weight: 205 lb 0.478 oz Body Mass Index (BMI) 30.2 Assessment & Plan Assessment/Plan (1) Change in bowel habits: (2) Globus sensation: (3) GERD (gastroesophageal reflux disease): QUALIFIERS: Esophagitis presence: esophagitis presence not specified Qualified Code(s): K21.9 - Gastro-esophageal reflux disease without esophagitis PLAN: Assessment and Plan Assessment and Plan (1) Abdominal pain: Status: Acute Qualifiers: Abdominal location: generalized Qualified Code(s): R10.84 - Generalized abdominal pain (2) GERD (gastroesophageal reflux disease): Status: Acute Qualifiers: Esophagitis presence: esophagitis presence not specified Qualified Code(s): K21.9 - Gastro-esophageal reflux disease without esophagitis (3) Steatosis, liver: Status: Acute (4) Globus sensation: Status: Acute (5) Change in bowel habits: Status: Acute Orders: Orders Abdomen Limited Today K21.9 - Gastro-esophageal reflux disease without esophagitis, K76.0 - Fatty (change of) liver, not elsewhere classified, R10.9 - Unspecified abdominal pain CBC W/Diff, Automated Today K21.9 - Gastro-esophageal reflux disease without esophagitis, K76.0 - Fatty (change of) liver, not elsewhere classified, R10.9 - Unspecified abdominal pain Comprehensive Metabolic Profil Today K21.9 - Gastro-esophageal reflux disease without esophagitis, K76.0 - Fatty (change of) liver, not elsewhere classified, R10.9 - Unspecified abdominal pain Hepatitis A AB, Total Today K21.9 - Gastro-esophageal reflux disease without esophagitis, K76.0 - Fatty (change of) liver, not elsewhere classified, R10.9 - Unspecified abdominal pain Hepatitis B Core Ab Total Today K21.9 - Gastro-esophageal reflux disease without esophagitis, K76.0 - Fatty (change of) liver, not elsewhere classified, R10.9 - Unspecified abdominal pain Hepatitis B Surface Antibody Today K21.9 - Gastro-esophageal reflux disease without esophagitis, K76.0 - Fatty (change of) liver, not elsewhere classified, R10.9 - Unspecified abdominal pain Hepatitis B Surface Antigen Today K21.9 - Gastro-esophageal reflux disease without esophagitis, K76.0 - Fatty (change of) liver, not elsewhere classified, R10.9 - Unspecified abdominal pain Hepatitis C Antibody Today K21.9 - Gastro-esophageal reflux disease without esophagitis, K76.0 - Fatty (change of) liver, not elsewhere classified, R10.9 - Unspecified abdominal pain Plan 43y/o male presents for consultation with complaints of generalized abdominal pain, bloating, flatulence, and alternating constipation and diarrhea for the past year. He reports a long history of GERD, dyspepsia and a globus sensation which has not been well managed with OTC PPI and antacids. He started pantoprazole 40mg daily one month ago and has noted mild symptomatic improvement. He denies any N/V, weight loss or dysphagia. CT completed 03/28/2024 revealed liver steatosis. I have recommended a high fiber diet with the addition of FiberCon. I have scheduled him for a colonoscopy and EGD. In terms of liver steatosis noted on CT, he will complete labs, ABD US and FibroScan. He will follow-up in the office post testing to review results. Patient Instructions: Start FiberCon 2 tablets once daily Continue pantoprazole 40mg daily Complete labs and ABD US at [facility] FibroScan at [facility] Increase water intake Decrease caffeine intake [facility] is currently providing free FibroScans. A FibroScan is a painless, non-invasive assessment of the liver. This test is used to measure the stiffness of liver tissue (fibrosis) as well as liver fat (steatosis). FibroScan requires no sedation of any kind, it is very similar to an Ultrasound.
--- NOTE | 2024-06-13 11:15 | COLBX_PTH ---
PATIENT: ARMINDA GERMAN Jr. LOC: [facility] U#:[id number] AGE/SX: 43/M ROOM: RE06/13/[address]: Dr. Elliott William DO : 1980 BED: DIS: 06/13/2024 SPEC #: [id number] RECD: 06/13/24 12:34 STATUS: KYLEIGH AYLA #: [id number] SALVADOR: 06/13/24 11:[address]: Elliott William DEPT: SURGICAL PATHOLOGY RECD BY: Teagan Mcadams ENTERED: 06/13/24 14:10 SP TYPE: COLON BX OTHR DR: NATANAEL Rosenthal Tissues: A - Duodenum, NOS B - Esophagus, NOS C - Ileum, NOS Procedures: Surgery Specimen Level IV HEADER OPERATION: Colonoscopy with biopsy, EGD with biopsy PRE-OP DIAGNOSIS: Change in bowel habits, globus sensation, GERD TISSUE SUBMITTED: A- Duodenum biopsy, B- Distal esophagus biopsy, C- Terminal ileum biopsy MICROSCOPIC DIAGNOSIS A. Duodenum, Biopsy: - Normal villous architecture with Marty gland hyperplasia and mild acute inflammation, suggestive of peptic injury. * Negative for increased intraepithelial lymphocytes. B. Distal Esophagus, Biopsy: - Columnar mucosa with goblet cell metaplasia and pancreatic acinar metaplasia - see note. - Benign squamous mucosa. - Negative for dysplasia. Note: The diagnosis depends on the location of the biopsy and the extent of the mucosal irregularity. If the biopsy originates from the tubular esophagus and the mucosal irregularity extends at least 1 cm above the top of the gastric folds, this represents Coffey mucosa. If the biopsy originates from the gastric cardia and/or the mucosal irregularity is less than 1 cm in extent, this represents intestinal metaplasia. C. Terminal Ileum, Biopsy: - Normal villous morphology with small mucosal lymphoid aggregates, favor reactive. MICROSCOPIC DESCRIPTION Slides are reviewed. GROSS DESCRIPTION A. Received in formalin in a container labeled with the patient's name, date of , and biopsy: Duodenum are 2 schmitt-pink fragments of mucosal tissue, each measuring 0.5 x 0.3 x 0.3 cm. Submitted in toto in A1. B. Received in formalin in a container labeled with the patient's name, date of , and biopsy: Distal esophagus are 2 schmitt-pink fragments of mucosal tissue, each measuring 0.4 x 0.3 x 0.2 cm. Submitted in toto in B1. C. Received in formalin in a container labeled with the patient's name, date of , and biopsy: Terminal ileum are 2 schmitt-pink fragments of mucosal tissue, each measuring 0.3 x 0.3 x 0.2 cm. Submitted in toto in C1. SMB 06-13-2024 CPT:34096n6
--- NOTE | 2024-06-13 11:20 | PRE.ANES_ITS ---
ASA Classification* ASA Classification ASA Classification: 2 Assessment & Plan Anesthesia* Anesthesia Assessment Anesthesia Assessment: Discussed sedation and/or anesthesia options, risks, benefits, and alternatives with patient/parents/legal guardian/POA. Questions invited. The patient/parents/legal guardian/POA seems to understand and agrees to proceed with anesthesia plan. Reviewed the physical assessment, medical history, allergy history and patient home medications list prior to surgery/procedure/anesthetic and documented any changes. Performed airway and anesthesia risk assessments. Anesthesia Type Anesthesia Type: MAC History Source History Obtained from:: Patient and Chart Anesthesia Focused Assessment* Temperature: 97.4 F Pulse Rate: 63 Blood Pressure: 120/81 Respiratory Rate: 16 Pulse Ox: 100 Oxygen Delivery Method: Room Air Airway Assessment Mouth opens: >3 cm Mallampati Score: II Teeth Condition: Intact Neck Range of motion (ROM): Limited ROM (slight decrease in extension) Focused Labs Anesthesia Preop lab: CBC WBC 8.4 K/mm3 (4.4-11.0) 04/10/24 16:04/10/24 RBC 4.91 M/mm3 (4.6-6.2) 04/10/24 16:33 04/10/24 Hgb 13.5 g/dL (13.0-16.5) 04/10/24 16:33 04/10/24 Hct 41.7 % (40-54) 04/10/24 16:33 04/10/24 Plt Count 294 K/mm3 (150-450) 04/10/24 16:33 04/10/24 CHEMISTRY Potassium 3.9 mmol/L (3.5-5.1) 04/10/24 16:33 04/10/24 Sodium 142 mmol/L (136-145) 04/10/24 16:33 04/10/24 BUN 12 mg/dL (7-18) 04/10/24 16:33 04/10/24 Creatinine 1.10 mg/dL (0.70-1.30) 04/10/24 16:33 04/10/24 Glucose 94 mg/dL (74-106) 04/10/24 16:33 04/10/24 TSH 2.17 uIU/mL (0.358-3.74) 01/29/21 00:05 11/19/ 21 COAG PT 12.9 SECONDS (11.7-14.9) 01/29/21 00:19 Pre-Assessment Diagnosis/Proposed Procedure Planned Operative Procedure(s): EGD, COLONOSCOPY Anesthesia History 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 When Was Last Pacemaker Check QUESTION #4 FULL TEXT: You/Your Family Experience fever (hyperthermia) with Anesthesia Last Oral Intake Last Oral intake: Last Oral Intake NPO since 23:00 06/13/24 10:15 Meds taken in AM with sips of No 06/13/24 10:15 water? Meds patient instructed to take am of surgery PONV PONV - polytechnic teacher: PONV - polytechnic teacher Female No 06/10/24 16:54 HX of Motion Sickness No 06/10/24 16:54 HX of N/V After Surgery No 06/10/24 16:54 Non-Smoker Yes 06/10/24 16:54 Duration of Surgery greater No 06/10/24 16:54 than 60 minutes Number of Risk Factors 1 06/10/24 16:54 PONV Score Low Risk 06/10/24 16:54 Height & Weight Height & Weight: Anesthesia: Height & Weight Height 5 ft 9 in 06/13/24 10:15 Weight: 93 kg 06/13/24 10:15 Body Mass Index (BMI) 30.2 06/13/24 10:15 Respiratory Assessment Respiratory Assessment - polytechnic teacher: Respiratory Tract Infection Hx - polytechnic teacher Hx Respiratory Tract Infection No 06/10/24 16:54 STOP Sleep Apnea STOP Sleep Apnea - polytechnic teacher: STOP Sleep Apnea - polytechnic teacher Hx Hypertension No 06/10/24 16:54 Hx Sleep Apnea No 06/10/24 16:54 CPAP BIPAP Do you snore loudly (louder No 06/10/24 16:54 than talking or can be heard Do you often feel tired/ No 06/10/24 16:54 fatigued/ sleepy during daytime? Has anyone observed you stop No 06/10/24 16:54 breathing during sleep? STOP Results Negative 06/10/24 16:54 QUESTION #5 FULL TEXT : Do you snore loudly (louder than talking or can be heard through closed doors)? Tobacco Use History Tobacco Use History - polytechnic teacher: Tobacco Use History - polytechnic teacher Tobacco Use Smoking Status Former smoker 06/10/24 16:54 Hx Tobacco Use Yes: CHEWS 06/10/24 16:54 Years Smoking Packs Smoked per Day Smoking Cessation Date was Yes - quit smoking within 15 06/10/24 16:54 within the last 15 years years Hx Smoking Cessation Date Hx Smoking Cessation Counseling Any additional information?: Yes Tobacco Use: Chew (Patient did not chew today) Hematologic Medial History Hematologic Hx - polytechnic teacher: Hematologic Medical Hx - sample builder Hx of Blood Transfusion No 06/10/24 16:54 Hx of Transfusion in last 3 No 06/10/24 16:54 Months Date of Last Transfusion (if within last 3 months) Ever experience any problems No 06/10/24 16:54 with transfusion(s)? Specify any problems Hx of Preganancy in last 3 N/A 06/10/24 16:54 Months Nurse Filling Out Transfusion MGRIFFITH 06/10/24 16:54 & Questions: Date: 06/10/24 06/10/24 16:54 Time: 16:57 06/10/24 16:54 Patient unable to answer at this time (ie. confused, unrespo /Reproduction History /Reproductive History - polytechnic teacher: /Reproductive Hx- polytechnic teacher Hx Now Gestational Age (in weeks): EDC: Hx Hx Para Hx Section [facility] Medical History Anxiety Marijuana use Arthritis History of kidney stones High cholesterol Fatty liver Injury of head and neck Gastric reflux Former smoker Chews tobacco Cardiology follow-up encounter PTSD (post-traumatic stress disorder) Home Medications ?Medication ?Instructions ?Recorded ?Last Taken ?Type fluticasone propionate 50 1 spray intranasal QDAY 03/1406/12/24 History mcg/actuation nasal spray,suspension (Flonase Allergy Relief) omeprazole 20 mg capsule,delayed 20 mg PO QDAY 5 06/12/24 History release Allergy/AdvReac Type Severity Reaction Status Date / Time No Known Allergies Allergy Verified 06/13/24 10:14 Surgical History History of tonsillectomy Social History Smoking Status: Former smoker alcohol intake: former substance use type: does not use caffeine: Yes Review of Systems (Anesthesia) ROS Narrative System reviewed and no additional complaints, except as documented.
--- NOTE | 2024-06-13 12:22 | OP.CCLET_ITS ---
06/13/2024 Benson Rosenthal Re : Upper GI endoscopy procedure for Keron Hunt Wilman This procedure was performed on June. My impressions and recommendations are as follows: Impressions : - LA Grade A reflux esophagitis with bleeding. Biopsied. - No gross lesions in the entire stomach. - Small hiatal hernia. - Erythematous duodenopathy. Biopsied. Recommendations : - Discharge patient to home. - Resume previous diet. - Continue present medications. My findings are described in the full procedure note, which is enclosed. If I can be of further assistance, please feel free to contact me at . Sincerely, Elliott William, 06/13/2024 12:22:22 PM This report has been signed electronically.
--- NOTE | 2024-06-13 12:22 | OP.EGD_ITS ---
Patient Name: Keron Thompson Procedure Date: 06/13/2024 11:48 AM Date of : 1980 Age: 43 Procedure: Upper GI endoscopy Indications: Functional Dyspepsia, Dysphagia Providers: Elliott William DO Referring MD: Benson Rosenthal Medicines: Monitored Anesthesia Care Patient Profile: This is a 43 year old male. Refer to note in patient chart for documentation of history and physical. Patient has symptoms of chronic epigastric abdominal pain and chronic dyspepsia. Complications: No immediate complications. Procedure: Pre-Anesthesia Assessment: - Prior to the procedure, a History and Physical was performed, and patient medications and allergies were reviewed. The patient is competent. The risks and benefits of the procedure and the sedation options and risks were discussed with the patient. All questions were answered and informed consent was obtained. Patient identification and proposed procedure were verified by the physician. Mental Status Examination: alert and oriented. Airway Examination: normal oropharyngeal airway and neck mobility. Respiratory Examination: clear to auscultation. CV Examination: normal. Prophylactic Antibiotics: The patient does not require prophylactic antibiotics. Prior Anticoagulants: The patient has taken no anticoagulant or antiplatelet agents except for NSAID medication. ASA Grade Assessment: II - A patient with mild systemic disease. After reviewing the risks and benefits, the patient was deemed in satisfactory condition to undergo the procedure. The anesthesia plan was to use monitored anesthesia care (MAC). Immediately prior to administration of medications, the patient was re-assessed for adequacy to receive sedatives. The heart rate, respiratory rate, oxygen saturations, blood pressure, adequacy of pulmonary ventilation, and response to care were monitored throughout the procedure. The physical status of the patient was re-assessed after the procedure. After obtaining informed consent, the endoscope was passed under direct vision. Throughout the procedure, the patient's blood pressure, pulse, and oxygen saturations were monitored continuously. The pediatric colonoscope was introduced through the mouth, and advanced to the third part of the duodenum. Small bowel enteroscopy was deemed necessary. The upper GI endoscopy was accomplished without difficulty. The patient tolerated the procedure well. Scope In: 11:58:13 AM Scope Out: 12:03:30 PM Total Procedure Duration Time 0 hours 5 minutes 17 seconds Findings: LA Grade A (one or more mucosal breaks less than 5 mm, not extending between tops of 2 mucosal folds) esophagitis with bleeding was found 39 to 40 cm from the incisors. Biopsies were taken with a cold forceps for histology. Verification of patient identification for the specimen was done. Estimated blood loss was minimal. No gross lesions were noted in the entire examined stomach. A small hiatal hernia was present. Patchy mildly erythematous mucosa without active bleeding and with no stigmata of bleeding was found in the third portion of the duodenum. Biopsies were taken with a cold forceps for histology. Verification of patient identification for the specimen was done. Estimated blood loss was minimal. Impression: - LA Grade A reflux esophagitis with bleeding. Biopsied. - No gross lesions in the entire stomach. - Small hiatal hernia. - Erythematous duodenopathy. Biopsied. Recommendation: - Discharge patient to home. - Resume previous diet. - Continue present medications. Procedure Code(s): --- Professional --- 89785, Small intestinal endoscopy, enteroscopy beyond second portion of duodenum, not including ileum; with biopsy, single or multiple CPT copyright 2021 [employer]. All rights reserved. The codes documented in this report are preliminary and upon director of automation review may be revised to meet current compliance requirements. Elliott William DO 06/13/2024 12:22:22 PM This report has been signed electronically. Number of Addenda: 0 Note Initiated On: 06/13/2024 11:48 AM
--- NOTE | 2024-06-13 12:25 | OP.COLON_ITS ---
Patient Name: Keron Thompson Procedure Date: 06/13/2024 12:03 PM Date of : 1980 Age: 43 Procedure: Colonoscopy Indications: Screening for colorectal malignant neoplasm Providers: Elliott William DO Referring MD: Benson Rosenthal Medicines: Monitored Anesthesia Care Patient Profile: This is a 43 year old male. Refer to note in patient chart for documentation of history and physical. Patient has symptoms of chronic epigastric abdominal pain and chronic dyspepsia. Last Colonoscopy: none. The patient's first colonoscopy is today. Complications: No immediate complications. Procedure: Pre-Anesthesia Assessment: - Prior to the procedure, a History and Physical was performed, and patient medications and allergies were reviewed. The patient is competent. The risks and benefits of the procedure and the sedation options and risks were discussed with the patient. All questions were answered and informed consent was obtained. Patient identification and proposed procedure were verified by the physician. Mental Status Examination: alert and oriented. Airway Examination: normal oropharyngeal airway and neck mobility. Respiratory Examination: clear to auscultation. CV Examination: normal. Prophylactic Antibiotics: The patient does not require prophylactic antibiotics. Prior Anticoagulants: The patient has taken no anticoagulant or antiplatelet agents except for NSAID medication. ASA Grade Assessment: II - A patient with mild systemic disease. After reviewing the risks and benefits, the patient was deemed in satisfactory condition to undergo the procedure. The anesthesia plan was to use monitored anesthesia care (MAC). Immediately prior to administration of medications, the patient was re-assessed for adequacy to receive sedatives. The heart rate, respiratory rate, oxygen saturations, blood pressure, adequacy of pulmonary ventilation, and response to care were monitored throughout the procedure. The physical status of the patient was re-assessed after the procedure. After I obtained informed consent, the scope was passed under direct vision. Throughout the procedure, the patient's blood pressure, pulse, and oxygen saturations were monitored continuously. The pediatric colonoscope was introduced through the anus and advanced to the terminal ileum. The colonoscopy was performed without difficulty. The patient tolerated the procedure well. The quality of the bowel preparation was poor. Anatomical landmarks were photographed. Scope In: 12:05:42 PM Scope Withdrawal Time 0 hours 3 minutes 6 seconds Scope Out: 12:13:56 PM Total Procedure Duration Time 0 hours 8 minutes 14 seconds Findings: The perianal and digital rectal examinations were normal. A large amount of stool was found in the entire colon, precluding visualization. Impression: - Preparation of the colon was poor. - Stool in the entire examined colon. - No specimens collected. Recommendation: - Discharge patient to home. - Resume previous diet. - Continue present medications. - Await pathology results. - Repeat colonoscopy because the bowel preparation was poor. Procedure Code(s): --- Professional --- 59169, Colonoscopy, flexible; diagnostic, including collection of specimen(s) by brushing or washing, when performed (separate procedure) CPT copyright 2021 [employer]. All rights reserved. The codes documented in this report are preliminary and upon asw/asuw tactical air controller review may be revised to meet current compliance requirements. Elliott William DO 06/13/2024 12:25:07 PM This report has been signed electronically. Number of Addenda: 0 Note Initiated On: 06/13/2024 12:03 PM
--- NOTE | 2024-06-13 12:25 | OP.CCLET_ITS ---
06/13/2024 Benson Rosenthal Re : Colonoscopy procedure for Keron Hunt Wilman This procedure was performed on June. My impressions and recommendations are as follows: Impressions : - Preparation of the colon was poor. - Stool in the entire examined colon. - No specimens collected. Recommendations : - Discharge patient to home. - Resume previous diet. - Continue present medications. - Await pathology results. - Repeat colonoscopy because the bowel preparation was poor. My findings are described in the full procedure note, which is enclosed. If I can be of further assistance, please feel free to contact me at . Sincerely, Elliott William, 06/13/2024 12:25:07 PM This report has been signed electronically.
--- NOTE | 2024-06-13 12:29 | PCM.POST.ANE ---
Anesthesia: Postop Eval I Current Vital Signs Temperature: 97 F Pulse Rate: 60 Blood Pressure: 132/99 Respiratory Rate: 14 Pulse Ox: 97 Oxygen Delivery Method: Room Air Assessment Airway patent: Yes Spontaneous unlabored respirations: Yes Mental status: Awake and Calm nausea: No Vomiting: No Anesthesia Complication: No Fluid Hydration Crystalloid volume administer (ml): 60 Total IV fluid infused: 60 Progress Note Anesthesia document: Postop Eval 1 completed: Yes
--- NOTE | 2024-06-13 13:57 | PCM.POSTANE2 ---
Anesthesia Postop Eval I Sum Postop Eval Completion status Anesthesia document: Postop Eval 1 completed: Yes Anesthesia Postop Eval I Summary Anesthesia Postop Eval I Summary: Anesthesia Postop Eval I: Assessment Summary Airway patent Yes 06/13/24 12:29 [email or web address] Spontaneous unlabored Yes 06/13/24 12:29 [email or web address] respirations Mental status Awake,Calm 06/13/24 12:29 [email or web address] nausea No 06/13/24 12:29 [email or web address] Vomiting No 06/13/24 12:29 [email or web address] Anesthesia Postop Eval I: Fluid Summary Crystalloid volume administer 60 06/13/24 12:29 [email or web address] (ml) Colloids volume administered ( ml) Blood Product volume administered (ml) Total IV fluid infused 60 06/13/24 12:29 [email or web address] Anesthesia Postop Eval I: Summary Notes Anesthesia Complication No 06/13/24 12:29 [email or web address] Anesthesia Complication Comment: Post-operative progress note Anesthesia: Postop Eval II Evaluation Mental status: Awake and Calm Pain Level: 0 nausea: No Vomiting: No Complications Anesthesia Complication: No
== END 2024-06-13 13:01 | disposition home or self-care (01) ==
LOC: EN 09:35 → AC 09:36
PROVIDERS: Visit Provider Internal Medicine Gastroenterology
PROC: 0DJD8ZZ Inspection of Lower Intestinal Tract, Via Natural or Artificial Opening Endoscopic (ICD-10-PCS; CPT 45378; principal; 2024-06-13 11:10)
DX: Z12.11 Encounter for screening for malignant neoplasm of colon (principal); K44.9 Diaphragmatic hernia without obstruction or gangrene; K21.00 Gastro-esophageal reflux disease with esophagitis, without bleeding; K76.0 Fatty (change of) liver, not elsewhere classified; R19.5 Other fecal abnormalities; Z87.891 Personal history of nicotine dependence
CPT/HCPCS: 44361; 45378; 88305; A4216; J2405